=== PATIENT | female | born 2000 | race Caucasian/White ===

== ENCOUNTER 2020-02-11 15:06 | Emergency (ER) | payer OTHER ==
[2020-02-11] MEDS ORDERED: IBUPROFEN 600 MG TABLET PO ONE (15:37)
--- NOTE | 2020-02-11 15:42 | ER Document Report ---
ED Breast Problem - General Chief Complaint: Breast Problem Stated Complaint: BREAST PAIN Time Seen by Provider: 02/11/20 15:25 Primary Care Provider: [facility] [Provider Group] - Follow up as needed DIVYA YOON MD [ACTIVE STAFF] - Follow up as needed Mode of Arrival: Ambulatory Information source: Patient Notes: 19-year-old female presented to ED for complaint of pain to the right breast while breast-feeding. There is no redness inflammation or any other symptoms. I was able to show the patient how to milk the duct to increase the flow. She states she was also taking antibiotics for strep throat and only took them for 3 days and then quit. She states she was on cefdinir. Will restart her cefdinir for 10 days. Denies any urinary symptoms at this time Constitutional: Negative for fever. HENT: Negative for sore throat. Eyes: Negative for visual changes. Cardiovascular: Complains of pain to the right lateral breast and she is breast- feeding. There is no redness swelling inflammation or warmth to the area that she is complaining of discomfort. She also had a fever of 101.7. She states she was recently treated for strep but did not complete the antibiotics. She denies any respiratory symptoms any sore throat any runny nose cough or congestion she denies any urinary symptoms. I did consult with Dr. Collins who stated that she is have a lot of the symptoms just to put her on the antibiotic she was on for the strep make sure she takes it for the entire time and have her follow-up with her primary care doctor. She was on cefdinir. I did give her a 10-day prescription and told to please to take until it was completed not to stop until she was finished. Patient agreed with this plan. Respiratory: Negative for shortness of breath. Gastrointestinal: Negative for abdominal pain, vomiting or diarrhea. Genitourinary: Negative for dysuria. Musculoskeletal: Negative for back pain. Skin: Negative for rash. Neurological: Negative for headaches, weakness or numbness. 10 point ROS negative except as marked above and in HPI. PHYSICAL EXAMINATION: GENERAL: Well-appearing, well-nourished and in no acute distress. She does have a fever of 101.7. HEAD: Atraumatic, normocephalic. EYES: Pupils equal round extraocular movements intact, conjunctiva are normal. ENT: Nares patent NECK: Normal range of motion LUNGS: No respiratory distress Numbness to the right breast she is breast-feeding. There is no redness no inflammation no warmth to the site Musculoskeletal: Normal range of motion NEUROLOGICAL: Normal speech, normal gait. PSYCH: Normal mood, normal affect. SKIN: Warm, Dry, normal turgor, no rashes or lesions noted. - HPI Patient complains to provider of: Tenderness. No: Drainage, Redness, Swelling Onset/Duration: Gradual Quality of pain: Sharp Severity: Moderate Pain Level: 4 Context: Discharge description: None Associated Symptoms: Chills, Fever Similar symptoms previously: Yes Recently seen / treated by doctor: Yes - Related Data Allergies/Adverse Reactions: No Known Allergies Allergy (Verified 02/11/20 15:41) Past Medical History - General Information source: Patient - Social History Smoking Status: Never Smoker Chew tobacco use (# tins/day): No Frequency of alcohol use: None Drug Abuse: None Lives with: Family Family History: Reviewed & Not Pertinent Patient has homicidal ideation: No Physical Exam - Vital signs Vitals: Temp Pulse Resp BP Pulse Ox 101.7 F H 131 H 24 127/63 H 97 02/11/20 15:21 02/11/20 15:21 02/11/20 15:21 02/11/20 15:21 02/11/20 15:21 Course - Re-evaluation Re-evalutation: 02/11/20 22:08 Treated the patient with ibuprofen and gave water and noncaffeinated soda. I have an outpatient did have a decrease in the pulse temperature and she stated she did feel better. She was instructed on how to massage the breast in the warm shower to release the milk. She did verbalize understanding and demonstrated proper technique. Patient was discharged home with instructions to follow-up with her primary doctor. - Vital Signs Vital signs: Temp Pulse Resp BP Pulse Ox 101.7 F H 131 H 24 127/63 H 97 02/11/20 15:25 02/11/20 15:21 02/11/20 15:21 02/11/20 15:21 02/11/20 15:21 Discharge - Discharge Clinical Impression: Breast pain Fever Qualifiers: Fever type: unspecified Qualified Code(s): R50.9 - Fever, unspecified Condition: Stable Disposition: HOME, SELF-CARE Additional Instructions: You were seen today for fever and pain in your right breast. There is no signs of mastitis at this time. There is no redness there is no inflammation there is no heat to the breast. States the breast was improved with massage to the milk duct. I have given you instructions on massage in the milk duct in the shower wall under hot water to help with a clogged duct. It is not mastitis at this time as there is no redness or inflammation. You do have a fever of 101.7. You did not complete your antibiotics when you were diagnosed with strep. We will give you a complete prescription for the cefdinir I want you to take it until it is completed please do not stop in the middle of the dose. Cephalosporins An antibiotic of the cephalosporin class has been prescribed. This type of antibiotic covers a wide variety of infections, including those of the skin, lungs, middle ear, and urinary tract. This antibiotic is somewhat similar to the penicillin family. In rare cases, a person who is allergic to penicillin will also be allergic to this medication. If you have had a severe allergic reaction to penicillin, and have not taken this antibiotic since that time, notify your doctor. Antibiotics which cover many germs ("broad spectrum" antibiotics) are more likely to cause diarrhea or "yeast" infections. Women prone to vaginal yeast problems may suffer an attack after taking this antibiotic. In infants, oral thrush (white spots "stuck" on the cheek) or yeast diaper rash may result. See your doctor if these problems occur. Call the doctor at once if you develop hives, itching, shortness of breath, or lightheadedness. Acetaminophen Acetaminophen may be taken for pain relief or fever control. It's much safer than aspirin, offering a wider range of "safe" dosages. It is safe during . Some brand names are Tylenol, Panadol, Datril, Anacin 3, Tempra, and Liquiprin. Acetaminophen can be repeated every four hours. The following are maximum recommended dosages: WEIGHT Dose Drops Elixir Chewa ble(80mg) (LBS.) drprs=droppers tsp=teaspoon 6 40 mg .4 ml (1/2) 6-11 80 mg .8 ml (full) 1/2 tsp 1 tab 12-16 120 mg 1 1/2 drprs 3/4 tsp 1 1/2 tabs 17-23 160 mg 2 drprs 1 tsp 2 tabs 24-30 240 mg 3 drprs 1 1/2 tsp 3 tabs 30-35 320 mg 2 tsp 4 tabs 36-41 360 mg 2 1/4 tsp 4 1/2 tabs 42-47 400 mg 2 1/2 tsp 5 tabs 48-53 480 mg 3 tsp 6 tabs 54-59 520 mg 3 1/4 tsp 6 1/2 tabs 60-64 560 mg 3 1/2 tsp 7 tabs 65-70 600 mg 3 3/4 tsp 7 1/2 tabs 71-76 640 mg 4 tsp 8 tabs 77-82 720 mg 4 1/2 tsp 9 tabs 83-88 800 mg 5 tsp 10 tabs >89 pounds or adults 650 mg to 900 mg Acetaminophen can be repeated every four hours. Maximum daily dose not to exceed 4000 mg. These maximum recommended dosages are slightly higher than the dosages written on the product container, but these dosages are very safe and well below the toxic dosage for acetaminophen. Ibuprofen Ibuprofen is an excellent, safe drug for pain control. In addition, it has potent antiinflammatory effects which are beneficial, especially in the treatment of injuries, arthritis, or tendonitis. It's best to take ibuprofen wi th food. Persons with ulcer disease or allergy to aspirin should notify their physician of this before taking ibuprofen. Take the medication exactly as prescribed. Don't take additional doses u nless instructed to do so by your doctor. If you develop wheezing, shortness of breath, hives, faintness, stomach pain, vomiting, or dark black stools, return for re-evaluation at once. FOLLOW-UP CARE: If you have been referred to a physician for follow-up care, call the physicians office for an appointment as you were instructed or within the next two days. If you experience worsening or a significant change in your symptoms, notify the physician immediately or return to the Emergency Department at any time for re-evaluation. Prescriptions: Cefdinir 300 mg PO Q12 #20 capsule Referrals: DIVYA YOON MD [ACTIVE STAFF] - Follow up as needed [facility] [Provider Group] - Follow up as needed
[2020-02-11 16:29] VITALS: BP 115/54
== END 2020-02-11 16:33 | disposition home or self-care (01) ==
LOC: ER 15:06
DX: N64.4 Mastodynia (principal); R50.9 Fever, unspecified
CPT/HCPCS: 99283